=== PATIENT | female | born 1995 | race Caucasian/White ===

== ENCOUNTER 2016-06-24 00:37 | Emergency (ER) | payer BC, OTHER ==
[~2016-06-24 00:37] MED LIST: MUCINEX DM ER1 EACH; VISTARIL PO; Z PACK; [UNRECOGNIZED DRUG - OTHER]
[2016-06-24 00:53] LABS: BASOPHIL# 0.1 X10e3 (0-0.3); BASOPHIL% 1.1 % (0-2.5); EOSINOPHIL# 0.3 X10e3 (0-0.7); EOSINOPHIL% 3.9 % (0.0-7.0); HEMATOCRIT 36.1 % (35.0-45.0); HEMOGLOBIN 12.2 gm/dL (12.0-16.0); LYMPHOCYTE# 2.6 X10e3 (1.0-3.5); MEAN CELL VOLUME 82.2 FL (83-96); MEAN CORPUSCULAR HEMOGLOBIN 27.8 PG (28-34); MEAN CORPUSCULAR HGB CONC 33.8 g/dL (30-36); MEAN PLATELET VOLUME 9.3 FL (6.5-11.5); MONOCYTE# 0.5 X10e3 (0-1.0); MONOCYTE% 6.9 % (3.0-12.0); NEUTROPHIL# 3.4 X10e3 (1.5-7.1); NEUTROPHIL% 50.1 % (40-75); PLATELET COUNT 252 X10e3 (140-420); RED BLOOD COUNT 4.39 X10e (3.90-5.30); RED CELL DISTRIBUTION WIDTH 13.9 % (11.0-15.5); WHITE BLOOD COUNT 6.9 X10e3 (4.0-10.5)
[2016-06-24 00:55] LABS: DIFF IND NO
[2016-06-24 01:05] LABS: BUN/CREATININE RATIO 24.28; CALCIUM SERUM 9.4 mg/dL (8.4-10.2); CREATININE SERUM 0.7 mg/dL (0.6-1.4); GLOM FILT RATE Estimated 124.7 mL/min (>60); POTASSIUM 3.9 mmol/L (3.5-5.1)
== END 2016-06-24 01:32 | disposition home or self-care (01) ==
LOC: SED 00:37
PROVIDERS: Emergency Medicine
DX: R20.2 Paresthesia of skin (principal); F41.9 Anxiety disorder, unspecified; F17.200 Nicotine dependence, unspecified, uncomplicated; Z88.0 Allergy status to penicillin; Z88.1 Allergy status to other antibiotic agents
CPT/HCPCS: 36415; 80048; 85025; 99283

== ENCOUNTER 2016-11-05 18:14 | Emergency (ER) | payer BC, OTHER ==
--- NOTE | ~2016-11-05 | CR58 ---
[facility]. [facility] A Service of [facility] & [facility] RADIOLOGY TEXT RESULTS PATIENT: ANITA FRANCISCO LOCATION: SED : [birth year] UNIT #: [id number] AGE: [address]: Zahra Boyd MD SEX: F ORDER DR: [id number] [address] [address] [id number] MR#: [id number] Acc #: [id number] NAME: ANITA FRANCISCO : 1995 SEX: F STUDY DATE/TIME: 11/05/2016 20:04 UNIT: SED ROOM: STUDY DESCRIPTION: CR Cervical Spine 2 or 3 Views Attending Physician: Zahra Boyd M.D. Ordering Physician: Zahra Boyd M.D. Primary Care Physician: Yanet Cano MEDICAL IMAGING REPORT This report is preliminary unless electronic signature is present. EXAM Cervical spine, 4 views, 11/05/2016. HISTORY Neck pain for 1 month, neck stiffness. No known injury. FINDINGS Four views of the cervical spine show satisfactory preservation of the cervical lordosis. The cervical soft tissues are normal. All anterior and posterior elements in the cervical area are anatomically normal without identifiable fracture, dislocation, malignant lytic or sclerotic change, or arthritis. There is no congenital defect apparent. IMPRESSION Normal cervical spine. Dictated by... Reynold Case M.D. THIS IS AN ELECTRONICALLY VERIFIED REPORT Reynold Case M.D. at 11/06/2016 2:16 PM KRT/michelet TD: 11/06/2016 10:20 JOB #: [id number] MEDICAL IMAGING REPORT Page 1 of 1
--- NOTE | ~2016-11-05 | CR63 ---
[facility] A Service of [facility] & [facility] RADIOLOGY TEXT RESULTS PATIENT: ANITA FRANCISCO LOCATION: SED : [birth year] UNIT #: [id number] AGE: [address]: Zahra Boyd MD SEX: F ORDER DR: [id number] [address] [address] [id number] E MR#: [id number] Acc #: [id number] NAME: ANITA FRANCISCO : 1995 SEX: F STUDY DATE/TIME: 11/05/2016 20:04 UNIT: SED ROOM: STUDY DESCRIPTION: CR Chest 2 View Attending Physician: Zahra Boyd M.D. Ordering Physician: Zahra Boyd M.D. Primary Care Physician: Yanet Cano MEDICAL IMAGING REPORT This report is preliminary unless electronic signature is present. EXAM Chest PA and lateral, 11/05/2016 HISTORY Chest pain for 1 week. Left side. No known injury. FINDINGS PA and lateral examination of the chest upright shows a good expansion of the parenchyma with a normal distribution of the pulmonary vascularity. There is no indication of congestion, effusion, infiltrate, tumor, or nodular density. The pleural reflections and diaphragmatic contours are normal. The cardiac silhouette and mediastinal anatomy is within normal limits. IMPRESSION Normal chest. Dictated by... Reynold Case M.D. THIS IS AN ELECTRONICALLY VERIFIED REPORT Reynold Case M.D. at 11/06/2016 2:16 PM MARGARITA/henri TD: 11/06/2016 10:27 JOB #: [id number] MEDICAL IMAGING REPORT Page 1 of 1
--- NOTE | ~2016-11-05 | EKG ---
PATIENT: ANITA FRANCISCO UNIT #: [id number] Ventricular Rate: 85 BPM Atrial Rate: 85 BPM P-R Interval: 166 ms QRS Duration: 80 ms Q-T Interval: 362 ms QTC Calculation(Bezet): 430 ms P [place]: 52 degrees Calculated R [place]: 32 degrees Calculated T [place]: 26 degrees Diagnosis Line: Normal sinus rhythm Diagnosis Line: Normal ECG Diagnosis Line: When compared with ECG of 22-APR-2016 19:58, Diagnosis Line: No significant change was found Diagnosis Line: Confirmed by ANGELINA RODRIGUEZ MD ([id number]) on Diagnosis Line: 11/07/2016 8:23:40 AM INTERPRETING MD: MICHAEL VILLEGAS
[2016-11-05] MEDS ORDERED: NO MEDICATIONS (18:17)
[2016-11-05 19:37] LABS: BASOPHIL# 0.1 X10e3 (0-0.3); BASOPHIL% 1.2 % (0-2.5); EOSINOPHIL# 0.2 X10e3 (0-0.7); EOSINOPHIL% 2.9 % (0.0-7.0); HEMATOCRIT 36.1 % (35.0-45.0); HEMOGLOBIN 12.1 gm/dL (12.0-16.0); LYMPHOCYTE# 2.9 X10e3 (1.0-3.5); LYMPHOCYTE% 34.8 % (17.0-45.0); MEAN CELL VOLUME 84.9 FL (83-96); MEAN CORPUSCULAR HEMOGLOBIN 28.4 PG (28-34); MEAN CORPUSCULAR HGB CONC 33.5 g/dL (30-36); MEAN PLATELET VOLUME 9.7 FL (6.5-11.5); MONOCYTE# 0.5 X10e3 (0-1.0); MONOCYTE% 5.8 % (3.0-12.0); NEUTROPHIL# 4.7 X10e3 (1.5-7.1); NEUTROPHIL% 55.3 % (40-75); PLATELET COUNT 235 X10e3 (140-420); RED BLOOD COUNT 4.25 X10e (3.90-5.30); RED CELL DISTRIBUTION WIDTH 13.4 % (11.0-15.5); WHITE BLOOD COUNT 8.5 X10e3 (4.0-10.5)
[2016-11-05 19:43] LABS: URINE SOURCE CLEAN CATCH
[2016-11-05 19:49] LABS: URINE APPEARANCE CLEAR; URINE BILIRUBIN NEG (NEG); URINE BLOOD NEG (NEG); URINE COLOR YELLOW; URINE GLUCOSE NEG (NORM); URINE KETONE NEG (NEG); URINE LEUKOCYTE ESTERASE 2+ (NEG); URINE NITRATE NEG (NEG); URINE PROTEIN NEG (NEG); URINE UROBILINOGEN 0.2 MG/DL (NORM)
[2016-11-05 19:52] LABS: DIFF IND NO
[2016-11-05 19:57] LABS: BILIRUBIN, DIRECT 0.1 mg/dL (0.0-0.2); BILIRUBIN,INDIRECT 0.2 mg/dL (0.0-0.9); BILIRUBIN,TOTAL 0.3 mg/dL (0.2-2.0); BUN/CREATININE RATIO 23.33; CREATININE SERUM 0.6 mg/dL (0.6-1.4); GLOM FILT RATE Estimated 131.2 mL/min (>60); PROTEIN TOTAL SERUM 7.3 g/dL (6.0-8.3)
[2016-11-05 19:57] LABS: POC - CKMB <1.0 ng/mL (0.0-7.9); POC - MYOGLOBIN 34.7 ng/mL (0.0-169.0); POC - TROPONIN <0.05 ng/mL (<=0.05)
[2016-11-05 19:59] LABS: MICRO INDICATED? YES
[2016-11-05 20:00] LABS: CULTURE INDICATED? YES; URINE BACTERIA 2+ (NEG); URINE RBC 0-2 /[HPF] (0-2); URINE SQUAMOUS EPITHELIAL CELL FEW /[HPF]
== END 2016-11-05 20:47 | disposition home or self-care (01) ==
LOC: SED 18:14
PROVIDERS: Student in an Organized Health Care Education/Training Program
DX: S16.1XXA Strain of muscle, fascia and tendon at neck level, initial encounter (principal); F41.9 Anxiety disorder, unspecified; F17.200 Nicotine dependence, unspecified, uncomplicated; Z88.0 Allergy status to penicillin; Z88.1 Allergy status to other antibiotic agents; X58.XXXA Exposure to other specified factors, initial encounter
CPT/HCPCS: 36415; 71020; 72040; 80048; 80076; 81003; 82553; 83874; 84484; 84703; 85025; 87086; 93005; 99285

== ENCOUNTER 2016-11-13 00:34 | Emergency (ER) | payer BC, OTHER ==
[~2016-11-13] VITALS: Ht 162.6 cm; Wt 81.6 kg
[~2016-11-13 00:34] MED LIST changes: +NO MEDICATIONS
== END 2016-11-13 01:15 | disposition home or self-care (01) ==
LOC: SED 00:34
DX: F41.0 Panic disorder [episodic paroxysmal anxiety] (principal); F17.200 Nicotine dependence, unspecified, uncomplicated; Z88.0 Allergy status to penicillin
CPT/HCPCS: 99283